=== PATIENT | female | born 1965 | race Caucasian/White ===

== ENCOUNTER → 2017-10-01 | Outpatient (CLI) | payer BC ==
[~2017-10-01] MED LIST: ASPI325; ATOR20 PO; CLOP75 PO; LEVSOD100 PO; LISI20 PO; METO50ER PO; Protonix40 MG PO; Synthroid50 MCG PO; TRAN2
[2017-10-01 10:43] LABS: BASOPHILS ABSOLUTE AUTO 0.06 K/mm3 (0.00-0.23); BASOPHILS PERCENT AUTO 1 % (0-2); EOSINOPHILS ABSOLUTE AUTO 0.14 K/mm3 (0.00-0.68); EOSINOPHILS PERCENT AUTO 2 % (0-6); Hematocrit 38.6 % (33.0-51.0); Hemoglobin 13.3 g/dL (11.5-16.0); IMMATURE GRAN ABSOLUTE AUTO 0.02 K/mm3 (0.00-0.10); IMMATURE GRAN PERCENT AUTO 0 % (0-1); LYMPHOCYTES PERCENT AUTO 22 % (21-46); MONOCYTES ABSOLUTE AUTO 1.05 K/mm3 (0.16-1.47); MONOCYTES PERCENT AUTO 12 % (4-13); Mean Corpuscular HGB 33.9 pg (26.0-34.0); Mean Corpuscular HGB Conc 34.5 g/dL (31.5-36.5); Mean Corpuscular Volume 99 fL (80-100); Mean Platelet Volume 10.4 fL (9.1-12.4); NEUTROPHILS ABSOLUTE AUTO 5.69 K/mm3 (1.96-9.15); NEUTROPHILS PERCENT AUTO 64 % (41-73); Platelet Count 266 K/mm3 (150-400); Red Blood Cell Count 3.92 M/mm3 (3.80-5.20); White Blood Cell Count 8.96 K/mm3 (4.00-11.30)
[2017-10-01 10:58] LABS: Alanine Aminotransfer (ALT/SGP 53 U/L (12-78); Albumin, Blood 3.8 g/dL (3.4-5.0); Albumin/Globulin Ratio 0.8 (0.8-1.8); Alk Phos 78 U/L (50-136); Anion Gap 10 mmol/L (6-16); Aspartate Aminotrans (AST/SGOT 72 U/L (12-37); Bilirubin, Total 0.5 mg/dL (0.1-1.0); Blood Urea Nitrogen 6 mg/dL (8-24); Bun/Creatinine Ratio 11.7 (12.0-20.0); CHOL/HDL RATIO 3.8; CO2, Blood 23 mmol/L (21-32); Calcium, Blood 9.4 mg/dL (8.5-10.1); Chloride, Blood 104 mmol/L (98-108); Cholesterol 188 mg/dL (50-200); Creatinine, Blood 0.51 mg/dL (0.40-1.00); Globulin, Blood 4.9 g/dL (2.2-4.0); Glomerular Filtration Rate >60 (60-); Glucose, Blood 75 mg/dL (70-99); HDL Cholesterol 49 mg/dL (>39); LDL/HDL RATIO 2.4; Low Density Lipoprotein Chol 118 mg/dL (0-110); Potassium, Blood 4.4 mmol/L (3.5-5.5); Sodium, Blood 137 mmol/L (136-145); Total Protein, Blood 8.7 g/dL (6.4-8.2); Triglycerides 107 mg/dL (30-160); Very Low Density Lipoprot Chol 21 mg/dL (6-32)
== END ==
LOC: LAB 10:30
PROVIDERS: Nurse Practitioner Family
DX: I10 Essential (primary) hypertension (principal); E03.9 Hypothyroidism, unspecified; R01.1 Cardiac murmur, unspecified; R20.2 Paresthesia of skin
CPT/HCPCS: 80053; 80061; 84443; 85025; 86140

== ENCOUNTER 2017-12-18 10:49 | Day surgery (SDC) | payer BC ==
[2017-12-17 17:28] LABS: BASOPHILS ABSOLUTE AUTO 0.07 K/mm3 (0.00-0.23); BASOPHILS PERCENT AUTO 1 % (0-2); EOSINOPHILS ABSOLUTE AUTO 0.22 K/mm3 (0.00-0.68); EOSINOPHILS PERCENT AUTO 3 % (0-6); Hematocrit 35.4 % (33.0-51.0); Hemoglobin 12.6 g/dL (11.5-16.0); IMMATURE GRAN PERCENT AUTO 0 % (0-1); LYMPHOCYTES ABSOLUTE AUTO 3.48 K/mm3 (0.84-5.20); LYMPHOCYTES PERCENT AUTO 46 % (21-46); MONOCYTES ABSOLUTE AUTO 0.66 K/mm3 (0.16-1.47); MONOCYTES PERCENT AUTO 9 % (4-13); Mean Corpuscular HGB 34.9 pg (26.0-34.0); Mean Corpuscular HGB Conc 35.6 g/dL (31.5-36.5); Mean Corpuscular Volume 98 fL (80-100); Mean Platelet Volume 9.2 fL (9.1-12.4); NEUTROPHILS ABSOLUTE AUTO 3.07 K/mm3 (1.96-9.15); NEUTROPHILS PERCENT AUTO 41 % (41-73); Platelet Count 280 K/mm3 (150-400); RDW Coefficient Variation 12.1 % (11.7-14.2); RDW Standard Deviation 43.5 fL (35.1-46.3); Red Blood Cell Count 3.61 M/mm3 (3.80-5.20)
[2017-12-17 17:44] LABS: International Normalized Ratio 0.97; Prothrombin Time Results 10.1 Sec (9.7-11.5)
[2017-12-17 17:53] LABS: Anion Gap 10 mmol/L (6-16); Blood Urea Nitrogen 5 mg/dL (8-24); Bun/Creatinine Ratio 5.9 (12.0-20.0); CO2, Blood 21 mmol/L (21-32); Calcium, Blood 8.6 mg/dL (8.5-10.1); Chloride, Blood 99 mmol/L (98-108); Creatinine, Blood 0.85 mg/dL (0.40-1.00); Glomerular Filtration Rate >60 (60-); Glucose, Blood 126 mg/dL (70-99); Potassium, Blood 3.4 mmol/L (3.5-5.5); Sodium, Blood 130 mmol/L (136-145)
[~2017-12-18] VITALS: Ht 167.6 cm; Wt 59.0 kg
== END 2017-12-19 08:07 | disposition home or self-care (01) ==
LOC: MHTC 10:49 → PCU 16:51 → ICUE 16:59 → MHTC 12-19 08:07
PROVIDERS: Internal Medicine Cardiovascular Disease
PROC: 4A023N7 Measurement of Cardiac Sampling and Pressure, Left Heart, Percutaneous Approach (ICD-10-PCS; principal; 2017-12-18)
PROC: B211YZZ Fluoroscopy of Multiple Coronary Arteries using Other Contrast (ICD-10-PCS; principal; 2017-12-18)
DX: I25.10 Atherosclerotic heart disease of native coronary artery without angina pectoris (principal); I34.0 Nonrheumatic mitral (valve) insufficiency; R93.1 Abnormal findings on diagnostic imaging of heart and coronary circulation; R06.02 Shortness of breath; R07.9 Chest pain, unspecified; E78.00 Pure hypercholesterolemia, unspecified; I10 Essential (primary) hypertension; Z82.49 Family history of ischemic heart disease and other diseases of the circulatory system; E78.5 Hyperlipidemia, unspecified
CPT/HCPCS: 36415; 80048; 85025; 85610; 93458; 99152; 99153; C1769; C1894; J1644; J2250; J3010; J7030; Q9967

== ENCOUNTER 2018-01-14 07:54 | Day surgery (SDC) | payer BC ==
[~2018-01-14] VITALS: Ht 162.6 cm; Wt 61.0 kg
== END 2018-01-14 22:43 | disposition home or self-care (01) ==
LOC: MHTC 07:54
PROC: B246ZZ4 Ultrasonography of Right and Left Heart, Transesophageal (ICD-10-PCS; principal; 2018-01-14)
DX: I34.0 Nonrheumatic mitral (valve) insufficiency (principal); I70.0 Atherosclerosis of aorta
CPT/HCPCS: 93312; 93325; J7030

== ENCOUNTER → 2018-09-26 | Outpatient (CLI) | payer BC ==
[2018-09-26 11:22] LABS: BASOPHILS ABSOLUTE AUTO 0.05 K/mm3 (0.00-0.23); BASOPHILS PERCENT AUTO 1 % (0-2); EOSINOPHILS ABSOLUTE AUTO 0.08 K/mm3 (0.00-0.68); EOSINOPHILS PERCENT AUTO 1 % (0-6); Hematocrit 40.2 % (33.0-51.0); Hemoglobin 14.1 g/dL (11.5-16.0); IMMATURE GRAN ABSOLUTE AUTO 0.02 K/mm3 (0.00-0.10); IMMATURE GRAN PERCENT AUTO 0 % (0-1); LYMPHOCYTES ABSOLUTE AUTO 2.16 K/mm3 (0.84-5.20); LYMPHOCYTES PERCENT AUTO 28 % (21-46); MONOCYTES ABSOLUTE AUTO 0.88 K/mm3 (0.16-1.47); MONOCYTES PERCENT AUTO 12 % (4-13); Mean Corpuscular HGB Conc 35.1 g/dL (31.5-36.5); Mean Corpuscular Volume 97 fL (80-100); NEUTROPHILS ABSOLUTE AUTO 4.46 K/mm3 (1.96-9.15); NEUTROPHILS PERCENT AUTO 58 % (41-73); Platelet Count 257 K/mm3 (150-400); RDW Coefficient Variation 12.4 % (11.7-14.2); RDW Standard Deviation 43.9 fL (35.1-46.3); Red Blood Cell Count 4.15 M/mm3 (3.80-5.20); White Blood Cell Count 7.65 K/mm3 (4.00-11.30)
[2018-09-26 11:36] LABS: Alanine Aminotransfer (ALT/SGP 14 U/L (12-78); Albumin/Globulin Ratio 0.9 (0.8-1.8); Alk Phos 96 U/L (50-136); Anion Gap 9 mmol/L (6-16); Aspartate Aminotrans (AST/SGOT 20 U/L (12-37); Bilirubin, Total 0.4 mg/dL (0.1-1.0); Blood Urea Nitrogen 7 mg/dL (8-24); Bun/Creatinine Ratio 9.6 (12.0-20.0); CO2, Blood 26 mmol/L (21-32); Calcium, Blood 9.4 mg/dL (8.5-10.1); Chloride, Blood 99 mmol/L (98-108); Creatinine, Blood 0.73 mg/dL (0.40-1.00); Globulin, Blood 4.6 g/dL (2.2-4.0); Glomerular Filtration Rate >60 (60-); Glucose, Blood 92 mg/dL (70-99); Potassium, Blood 4.1 mmol/L (3.5-5.5); Sodium, Blood 134 mmol/L (136-145); Total Protein, Blood 8.6 g/dL (6.4-8.2)
== END ==
LOC: LAB SHORT 10:55 → LAB 10:55
PROVIDERS: Family Medicine
DX: R59.9 Enlarged lymph nodes, unspecified (principal)
CPT/HCPCS: 80053; 84443; 85025; 85651

== ENCOUNTER → 2018-12-30 | Outpatient (CLI) | payer BC ==
[2018-12-30 13:00] LABS: BASOPHILS ABSOLUTE AUTO 0.08 K/mm3 (0.00-0.23); BASOPHILS PERCENT AUTO 1 % (0-2); EOSINOPHILS ABSOLUTE AUTO 0.28 K/mm3 (0.00-0.68); EOSINOPHILS PERCENT AUTO 4 % (0-6); Hematocrit 41.9 % (33.0-51.0); Hemoglobin 14.1 g/dL (11.5-16.0); IMMATURE GRAN ABSOLUTE AUTO 0.02 K/mm3 (0.00-0.10); IMMATURE GRAN PERCENT AUTO 0 % (0-1); LYMPHOCYTES ABSOLUTE AUTO 3.17 K/mm3 (0.84-5.20); LYMPHOCYTES PERCENT AUTO 45 % (21-46); MONOCYTES ABSOLUTE AUTO 0.76 K/mm3 (0.16-1.47); MONOCYTES PERCENT AUTO 11 % (4-13); Mean Corpuscular HGB Conc 33.7 g/dL (31.5-36.5); Mean Corpuscular Volume 101 fL (80-100); Mean Platelet Volume 10.4 fL (9.1-12.4); NEUTROPHILS ABSOLUTE AUTO 2.72 K/mm3 (1.96-9.15); NEUTROPHILS PERCENT AUTO 39 % (41-73); Platelet Count 340 K/mm3 (150-400); RDW Coefficient Variation 13.3 % (11.7-14.2); RDW Standard Deviation 49.5 fL (35.1-46.3); Red Blood Cell Count 4.15 M/mm3 (3.80-5.20); White Blood Cell Count 7.03 K/mm3 (4.00-11.30)
[2018-12-30 13:35] LABS: Alanine Aminotransfer (ALT/SGP 24 U/L (12-78); Albumin, Blood 3.7 g/dL (3.4-5.0); Albumin/Globulin Ratio 0.8 (0.8-1.8); Alk Phos 81 U/L (50-136); Anion Gap 7 mmol/L (6-16); Aspartate Aminotrans (AST/SGOT 42 U/L (12-37); Bilirubin, Total 0.4 mg/dL (0.1-1.0); Blood Urea Nitrogen 3 mg/dL (8-24); Bun/Creatinine Ratio 4.8 (12.0-20.0); CHOL/HDL RATIO 5.9; CO2, Blood 24 mmol/L (21-32); Calcium, Blood 9.5 mg/dL (8.5-10.1); Chloride, Blood 107 mmol/L (98-108); Cholesterol 231 mg/dL (50-200); Creatinine, Blood 0.62 mg/dL (0.40-1.00); Globulin, Blood 4.4 g/dL (2.2-4.0); Glomerular Filtration Rate >60 (60-); Glucose, Blood 76 mg/dL (70-99); HDL Cholesterol 39 mg/dL (>39); LDL/HDL RATIO 3.2; Low Density Lipoprotein Chol 126 mg/dL (0-110); Potassium, Blood 4.7 mmol/L (3.5-5.5); Sodium, Blood 138 mmol/L (136-145); Total Protein, Blood 8.1 g/dL (6.4-8.2); Triglycerides 328 mg/dL (30-160); Very Low Density Lipoprot Chol 65 mg/dL (6-32)
== END | disposition home or self-care (01) ==
LOC: LAB 11:57 → LAB SHORT 11:57
PROVIDERS: Nurse Practitioner Family
DX: E03.9 Hypothyroidism, unspecified (principal); I10 Essential (primary) hypertension
CPT/HCPCS: 80053; 80061; 84443; 85025

== ENCOUNTER 2019-02-17 10:51 | Day surgery (SDC) | payer BC ==
[~2019-02-17] VITALS: Ht 162.6 cm; Wt 59.9 kg
[~2019-02-17 10:51] MED LIST changes: +ASPI81CH
--- NOTE | 2019-02-17 12:30 | NUR ---
02/17/19 1230 Sherry Calloway SIMETHICONE USED DURING PROCEDURE.
== END 2019-02-17 13:18 | disposition home or self-care (01) ==
LOC: ORSCSDS 10:51
PROVIDERS: Student in an Organized Health Care Education/Training Program
PROC: 0DBK8ZX Excision of Ascending Colon, Via Natural or Artificial Opening Endoscopic, Diagnostic (ICD-10-PCS; principal; 2019-02-17 12:00)
PROC: 0DBE8ZX Excision of Large Intestine, Via Natural or Artificial Opening Endoscopic, Diagnostic (ICD-10-PCS; principal; 2019-02-17 12:00)
PROC: 0DBP8ZX Excision of Rectum, Via Natural or Artificial Opening Endoscopic, Diagnostic (ICD-10-PCS; principal; 2019-02-17 12:00)
DX: R19.7 Diarrhea, unspecified (principal); D12.2 Benign neoplasm of ascending colon; K62.1 Rectal polyp; K52.831 Collagenous colitis; R14.0 Abdominal distension (gaseous); I25.10 Atherosclerotic heart disease of native coronary artery without angina pectoris; I10 Essential (primary) hypertension; E03.9 Hypothyroidism, unspecified; J44.9 Chronic obstructive pulmonary disease, unspecified; F17.210 Nicotine dependence, cigarettes, uncomplicated
CPT/HCPCS: 88305; 88313; J2704; J7120

== ENCOUNTER → 2022-11-24 | Outpatient (CLI) | payer OTHER ==
[~2022-11-24] MED LIST changes: +ASPI81CH PO; +ATOR40TA PO; +BUDE.25 PO; +BUPR150ER PO; +ISOMON20 PO; +LEVO-T100 MC1 PO; +LIOT5 PO; -LISI20 PO; +LISI5 PO; +NICO21TP TOP; +PANTOPRAZOLE SO40 M2 PO
[2022-11-24 14:15] LABS: Adenovirus F 40/41 Not Detected (NOT DETECT); Astrovirus Not Detected (NOT DETECT); Campylobacter Sp Not Detected (NOT DETECT); Cryptosporidium Not Detected (NOT DETECT); Cyclospora Cayetanensis Not Detected (NOT DETECT); E. Coli O157 Not Detected (NOT DETECT); Entamoeba Histolytica Not Detected (NOT DETECT); Enteroaggregative E. coli-EAEC Not Detected (NOT DETECT); Enteropathogenic E. coli-EPEC Not Detected (NOT DETECT); Enterotoxigenic E. coli-ETEC Not Detected (NOT DETECT); Giardia Lamblia Not Detected (NOT DETECT); Norovirus GI/GII Not Detected (NOT DETECT); Plesiomonas Shigelloides Not Detected (NOT DETECT); Rotavirus A Not Detected (NOT DETECT); Salmonella Sp Not Detected (NOT DETECT); Sapovirus Not Detected (NOT DETECT); Shiga Toxin-prod E. coli-STEC Not Detected (NOT DETECT); Shigella/Enteroin E. coli-EIEC Not Detected (NOT DETECT); Vibrio Cholerae Not Detected (NOT DETECT); Vibrio Sp Not Detected (NOT DETECT); Yersinia Enterocolitica Not Detected (NOT DETECT)
== END | disposition home or self-care (01) ==
LOC: LAB 08:00 → LAB SHORT 08:00
PROVIDERS: Nurse Practitioner Family
DX: R19.7 Diarrhea, unspecified (principal)
CPT/HCPCS: 87338; 87507; 89055

== ENCOUNTER 2023-01-26 12:41 | Day surgery (SDC) | payer OTHER ==
[~2023-01-26] VITALS: Ht 162.6 cm; Wt 23.1 kg
[2023-01-26] MEDS ORDERED: ERGO400 (13:09)
[2023-01-26] MEDS ORDERED: BUDESONIDE EC3 M1 (13:09)
[2023-01-26] MEDS ORDERED: FOLI1 (13:09)
[2023-01-26] MEDS ORDERED: Vitamin B-12100 MCG (13:09)
[2023-01-26 15:17] VITALS: BP 144/73
== END 2023-01-26 15:00 | disposition home or self-care (01) ==
LOC: ORSCSDS 12:41
PROVIDERS: Student in an Organized Health Care Education/Training Program
PROC: 0DB98ZX Excision of Duodenum, Via Natural or Artificial Opening Endoscopic, Diagnostic (ICD-10-PCS; principal; 2023-01-26 14:00)
PROC: 0DB68ZX Excision of Stomach, Via Natural or Artificial Opening Endoscopic, Diagnostic (ICD-10-PCS; principal; 2023-01-26 14:00)
PROC: 0DB58ZX Excision of Esophagus, Via Natural or Artificial Opening Endoscopic, Diagnostic (ICD-10-PCS; principal; 2023-01-26 14:00)
DX: K22.70 Barrett's esophagus without dysplasia (principal); K52.831 Collagenous colitis; K20.90 Esophagitis, unspecified without bleeding; K29.70 Gastritis, unspecified, without bleeding; K44.9 Diaphragmatic hernia without obstruction or gangrene; I25.10 Atherosclerotic heart disease of native coronary artery without angina pectoris; I10 Essential (primary) hypertension; E78.5 Hyperlipidemia, unspecified; E03.9 Hypothyroidism, unspecified; J44.9 Chronic obstructive pulmonary disease, unspecified; D50.9 Iron deficiency anemia, unspecified; Z87.891 Personal history of nicotine dependence; Z79.82 Long term (current) use of aspirin; Z79.899 Other long term (current) drug therapy
CPT/HCPCS: 88305; 88342; J2704; J7120

== ENCOUNTER → 2023-05-15 | Outpatient (CLI) | payer OTHER ==
[~2023-05-15] MED LIST changes: +BUDESONIDE EC3 M1; +ERGO400; +FOLI1; +Vitamin B-12100 MCG
== END | disposition home or self-care (01) ==
LOC: LAB 12:25 → LAB SHORT 12:25
DX: M25.471 Effusion, right ankle (principal)
CPT/HCPCS: 84550

== ENCOUNTER → 2023-07-05 | Outpatient (CLI) | payer OTHER ==
[2023-07-06 02:19] LABS: Campylobacter Sp Not Detected (NOT DETECT)
[2023-07-06 02:20] LABS: Adenovirus F 40/41 Not Detected (NOT DETECT); Astrovirus Not Detected (NOT DETECT); Cryptosporidium Not Detected (NOT DETECT); Cyclospora Cayetanensis Not Detected (NOT DETECT); E. Coli O157 Not Detected (NOT DETECT); Entamoeba Histolytica Not Detected (NOT DETECT); Enteroaggregative E. coli-EAEC Not Detected (NOT DETECT); Enteropathogenic E. coli-EPEC Not Detected (NOT DETECT); Enterotoxigenic E. coli-ETEC Not Detected (NOT DETECT); Giardia Lamblia Not Detected (NOT DETECT); Norovirus GI/GII Not Detected (NOT DETECT); Plesiomonas Shigelloides Not Detected (NOT DETECT); Rotavirus A Not Detected (NOT DETECT); Salmonella Sp Not Detected (NOT DETECT); Sapovirus Not Detected (NOT DETECT); Shiga Toxin-prod E. coli-STEC Not Detected (NOT DETECT); Shigella/Enteroin E. coli-EIEC Not Detected (NOT DETECT); Vibrio Cholerae Not Detected (NOT DETECT); Vibrio Sp Not Detected (NOT DETECT); Yersinia Enterocolitica Not Detected (NOT DETECT)
== END | disposition home or self-care (01) ==
LOC: LAB SHORT 09:00 → LAB 09:00 → LAB SHORT 12:54 → EDSTATUS 06-28 14:35 → LAB FUT 06-28 14:35
PROVIDERS: Internal Medicine Gastroenterology
DX: R19.7 Diarrhea, unspecified (principal)
CPT/HCPCS: 87507

== ENCOUNTER 2024-03-28 06:11 | Day surgery (SDC) | payer OTHER ==
[~2024-03-28] VITALS: Ht 162.6 cm; Wt 68.2 kg
[2024-03-28] VITALS (25 sets, daily range): BP systolic 105–155; BP diastolic 63–99
[~2024-03-28 06:11] MED LIST changes: +ALBU90OI INH; +AMLODIPINE BESYL5 MG PO; +ASCORBIC ACID500 MG PO; -ASPI81CH PO; +ASPIR 8181 M1 PO; -BUDESONIDE EC3 M1; +Calcium Carbon500 MG PO; +Crestor40 MG PO; -ERGO400; +FARXIGA10 MG PO; +FERSU300 PO; -FOLI1; +FOLI1 PO; +FURO40 PO; +IBUP800 PO; +K-TAB ER20 ME1 PO; -LEVO-T100 MC1 PO; +LEVO-T88 MC1 PO; +LOPE2C PO; +METO100ER PO; -METO50ER PO; +MIRALAX11910 PO; +NITR.4SL PO; +ORTIKOS6 M1 PO; +SERTRALINE HCL150 M1 PO; +VITAMIN B-1100 M1 PO; +VITAMIN D310 MC4 PO; -Vitamin B-12100 MCG; +Vitamin B-12100 MCG PO
[2024-03-28] MEDS ORDERED: NS 1,000 ML IV ONE ×3 (06:47→08:21)
[2024-03-28] MEDS ORDERED: Benzocaine Oral Spray 0.5ML UD ONE (06:55)
[2024-03-28] MEDS ORDERED: Verapamil HCL 2.5 MG/ML 2ML Injection ONE (07:05)
[2024-03-28] MEDS ORDERED: NS 250 ML IV ONE (07:06)
[2024-03-28] MEDS ORDERED: Heparin Sodium 1000 Units/ML 10ML MDV ONE ×2 (07:06→08:46)
[2024-03-28] MEDS ORDERED: Nitroglycerin 2 MG/20 ML BTL ONE (07:18)
--- NOTE | 2024-03-28 07:47 | NUR ---
SHARAN WITH ANESTHESIA COMPLETE. PT MARKOS PROCEDURE WELL. ASSUMED CARE AT 0750. VSS. RIGHT AND LEFT HEART CATH TO FOLLOW WITH DR LEON. PT AWAKE AND FOLLOWING COMMANDS.
--- NOTE | 2024-03-28 08:09 | NUR ---
PT BROUGHT TO RECOVERY ROOM AWAKE, ALERT, AND IN STABLE CONDITION
[2024-03-28] MEDS ORDERED: Midazolam HCl 1MG / ML 2ML Vial ONE (08:21)
[2024-03-28] MEDS ORDERED: FentaNYL Citrate 50 MCG/ML 2 ML Injection ONE (08:21)
[2024-03-28] MEDS ORDERED: NS 100 ML IV ONE (08:24)
[2024-03-28] MEDS ORDERED: Adenosine 3 MG/ML 30 ML Vial ONE (08:25)
[2024-03-28] MEDS ORDERED: NS 0 ML IV ONE (08:25)
--- NOTE | 2024-03-28 10:33 | NUR ---
PT UP TO THE BATHROOM /C SBA. TOLERATED WELL.
--- NOTE | 2024-03-28 12:02 | NUR ---
10CC AIR REMOVED FROM R WRIST TR BAND. NEG BLEEDING OR SWELLING. FAMILY AT BEDSIDE.
--- NOTE | 2024-03-28 12:11 | NUR ---
R WRIST TR BAND REMOVED AND CLOTH DOT DRSG PLACED OVER PUNCTURE AREA. R WRIST SPLINT REAPPLIED. PT AND VERBALIZED UNDERSTANDING OF WRITTEN AND VERBAL D/C INST. IV REMOVED. PT WILL BE TAKEN OUT VIA W/C.
[2024-03-28] MEDS ORDERED: Lidocaine HCl 2% 20 MG/ML 5ML SYR IV ONE (15:31)
[2024-03-28] MEDS ORDERED: Propofol 10mg/ml 20 ml Vial (Procedural) IV ONE (15:31)
== END 2024-03-28 12:50 | disposition home or self-care (01) ==
LOC: ORSCMMR 06:11 → MHTC 06:11 → ORSCMMR 06:12 → MHTC 06:25 → ORSCMMR 06:25 → ORD 07:30 → MHTC 12:50 → ORSCMMR 12:50
DX: I34.0 Nonrheumatic mitral (valve) insufficiency (principal); I27.20 Pulmonary hypertension, unspecified; I25.10 Atherosclerotic heart disease of native coronary artery without angina pectoris; I15.9 Secondary hypertension, unspecified; I47.10 Supraventricular tachycardia, unspecified; I11.9 Hypertensive heart disease without heart failure; I63.9 Cerebral infarction, unspecified; I73.9 Peripheral vascular disease, unspecified; I44.0 Atrioventricular block, first degree; R06.02 Shortness of breath; E78.5 Hyperlipidemia, unspecified; E03.9 Hypothyroidism, unspecified; Z86.73 Personal history of transient ischemic attack (TIA), and cerebral infarction without residual deficits; Z79.82 Long term (current) use of aspirin; Z79.890 Hormone replacement therapy; Z79.899 Other long term (current) drug therapy; Z88.8 Allergy status to other drugs, medicaments and biological substances
CPT/HCPCS: 76937; 93312; 93325; 93456; 99152; A9270; C1769; C1894; J0153; J1644; J2001; J2250; J2704; J3010; J7030; J7050; Q9967

== ENCOUNTER → 2024-04-03 | Outpatient (CLI) | payer OTHER | END | disposition home or self-care (01) | LOC: LAB SHORT 10:00 | DX: N39.0 Urinary tract infection, site not specified (principal) | CPT/HCPCS: 87077; 87086; 87186 ==

== ENCOUNTER 2024-04-04 12:24 | Emergency (ER) | payer OTHER ==
[~2024-04-04] VITALS: Ht 162.6 cm; Wt 68.0 kg
[2024-04-04 12:55] LABS: BASOPHILS ABSOLUTE AUTO 0.07 K/mm3 (0.00-0.23); BASOPHILS PERCENT AUTO 1 % (0-2); EOSINOPHILS PERCENT AUTO 4 % (0-6); Hematocrit 40.8 % (33.0-51.0); Hemoglobin 13.5 g/dL (11.5-16.0); IMMATURE GRAN ABSOLUTE AUTO 0.04 K/mm3 (0.00-0.10); IMMATURE GRAN PERCENT AUTO 1 % (0-1); LYMPHOCYTES ABSOLUTE AUTO 1.71 K/mm3 (0.84-5.20); LYMPHOCYTES PERCENT AUTO 21 % (21-46); MONOCYTES ABSOLUTE AUTO 0.82 K/mm3 (0.16-1.47); MONOCYTES PERCENT AUTO 10 % (4-13); Mean Corpuscular HGB 31.3 pg (26.0-34.0); Mean Corpuscular HGB Conc 33.1 g/dL (31.5-36.5); Mean Corpuscular Volume 94 fL (80-100); Mean Platelet Volume 9.1 fL (9.1-12.4); NEUTROPHILS ABSOLUTE AUTO 5.12 K/mm3 (1.96-9.15); NEUTROPHILS PERCENT AUTO 64 % (41-73); Platelet Count 402 K/mm3 (150-400); RDW Coefficient Variation 14.4 % (11.7-14.2); RDW Standard Deviation 49.9 fL (35.1-46.3); Red Blood Cell Count 4.32 M/mm3 (3.80-5.20); White Blood Cell Count 8.06 K/mm3 (4.00-11.30)
[2024-04-04 13:13] LABS: Albumin, Blood 3.7 g/dL (3.4-5.0); Albumin/Globulin Ratio 0.8 (0.8-1.8); Bilirubin, Total 0.2 mg/dL (0.1-1.0); Bun/Creatinine Ratio 6.2 (12.0-20.0); Calcium, Blood 9.1 mg/dL (8.5-10.1); Creatinine, Blood 0.98 mg/dL (0.40-1.00); Globulin, Blood 4.8 g/dL (2.2-4.0); Phosphorus, Blood 4.4 mg/dL (2.5-4.9); Potassium, Blood 4.8 mmol/L (3.5-5.5); Total Protein, Blood 8.5 g/dL (6.4-8.2)
[2024-04-04 16:00] VITALS: BP 145/65
== END 2024-04-04 16:11 | disposition home or self-care (01) ==
LOC: ER 12:24
PROVIDERS: Physician Assistant
DX: Z71.41 Alcohol abuse counseling and surveillance of alcoholic (principal); F10.10 Alcohol abuse, uncomplicated; Z79.899 Other long term (current) drug therapy; Z79.82 Long term (current) use of aspirin; I10 Essential (primary) hypertension; F17.210 Nicotine dependence, cigarettes, uncomplicated; Y90.8 Blood alcohol level of 240 mg/100 ml or more
CPT/HCPCS: 80053; 83735; 84100; 85025; 99282

== ENCOUNTER 2024-06-03 16:29 | Observation (INO) | payer OTHER ==
[~2024-06-03] VITALS: Ht 162.6 cm; Wt 64.6 kg
[2024-06-03 16:46] VITALS: BP 113/61
[2024-06-03] MEDS ORDERED: FLU VACC TS2024-25(6MOS UP)/PF 45 MCG/0.5 ML SYRINGE IM ONE (17:00)
--- NOTE | 2024-06-03 17:10 | NUR ---
PT ARRIVED TO THE ROOM AT APPROXIMATELY 1455. PT ALERT, ORIENTED AND PLEASANT AT TIME OF ARRIVAL. PT RATES PAIN AT 5/10 AND STATES PAIN IS TOLERABLE. CALL LIGHT PLACED IN REACH AND PT EDUCATED TO USE.
[2024-06-03] MEDS ORDERED: Albuterol HFA200 ACT/6.7 GM INH INH PRN (17:25)
[2024-06-03] MEDS ORDERED: ORTIKOS6 M1 PO (17:53)
[2024-06-03] MEDS ORDERED: Naltrexone HCl50 MG PO (17:54)
[2024-06-03] MEDS ORDERED: Metoprolol Succinate 50 MG TABCR PO SCH (18:00)
[2024-06-03] MEDS ORDERED: Piperacillin/Tazobactam Sod 3.375 GM in NS 100 ML IV SCH (18:00)
[2024-06-03] MEDS ORDERED: NS 250 ML IV PRN (18:40)
[2024-06-03] MEDS ORDERED: HYDROcodone 5-APAP 325 TAB PO PRN (19:05)
[2024-06-03] MEDS ORDERED: Acetaminophen 325 MG TABLET PO PRN (19:10)
[2024-06-03] MEDS ORDERED: FentaNYL Citrate 50 MCG/ML 2 ML Injection IV PRN (19:10)
[2024-06-03 19:25] VITALS: BP 130/62
--- NOTE | 2024-06-03 19:28 | NUR ---
SHIFT SUMMARY PT ADMITTED THIS SHIFT. PAIN HAS BEEN MINIMAL WHILE AT REST. PT IS TOLERATING CLEAR LIQUIDS. BEDSIDE REPORT GIVEN TO MATEO DASILVA.
[2024-06-03] MEDS ORDERED: Liothyronine Sodium 5 MCG Tab PO SCH (21:00)
[2024-06-03] MEDS ORDERED: Sennosides 8.6 MG Tab PO SCH (21:00)
[2024-06-03] MEDS ORDERED: Lisinopril 5 MG Tab PO SCH (21:00)
[2024-06-03] MEDS ORDERED: buPROPion HCL 150 MG TAB.SR.12H PO SCH (21:00)
[2024-06-04] VITALS (19 sets, daily range): BP systolic 109–167; BP diastolic 55–80
[2024-06-04 05:08] LABS: BASOPHILS ABSOLUTE AUTO 0.06 K/mm3 (0.00-0.23); BASOPHILS PERCENT AUTO 0 % (0-2); EOSINOPHILS ABSOLUTE AUTO 0.22 K/mm3 (0.00-0.68); EOSINOPHILS PERCENT AUTO 1 % (0-6); Hematocrit 35.4 % (33.0-51.0); Hemoglobin 11.2 g/dL (11.5-16.0); IMMATURE GRAN ABSOLUTE AUTO 0.03 K/mm3 (0.00-0.10); IMMATURE GRAN PERCENT AUTO 0 % (0-1); LYMPHOCYTES ABSOLUTE AUTO 1.78 K/mm3 (0.84-5.20); LYMPHOCYTES PERCENT AUTO 11 % (21-46); MONOCYTES PERCENT AUTO 8 % (4-13); Mean Corpuscular HGB 29.6 pg (26.0-34.0); Mean Corpuscular HGB Conc 31.6 g/dL (31.5-36.5); Mean Corpuscular Volume 94 fL (80-100); Mean Platelet Volume 10.2 fL (9.1-12.4); NEUTROPHILS ABSOLUTE AUTO 12.38 K/mm3 (1.96-9.15); NEUTROPHILS PERCENT AUTO 79 % (41-73); Platelet Count 314 K/mm3 (150-400); RDW Coefficient Variation 12.9 % (11.7-14.2); RDW Standard Deviation 44.2 fL (35.1-46.3); Red Blood Cell Count 3.78 M/mm3 (3.80-5.20); White Blood Cell Count 15.77 K/mm3 (4.00-11.30)
[2024-06-04 05:44] LABS: Bun/Creatinine Ratio 11.3 (12.0-20.0); Creatinine, Blood 1.24 mg/dL (0.40-1.00)
[2024-06-04] MEDS ORDERED: Pantoprazole Sodium 40 MG Tab PO SCH (06:00)
[2024-06-04] MEDS ORDERED: Levothyroxine Sodium 0.088 MG Tab PO SCH (06:00)
--- NOTE | 2024-06-04 06:52 | NUR ---
SHIFT SUMMARY NOC. PT ADMIT FOR APPY. PT HAS BEEN NPO SINCE 0000. VOIDING URINE. A/O X4 BUT REPORTS FORGETFUL AT TIMES. BED ALARM SET FOR SAFETY, PT DID NOT SET OFF ALARM AND CALLS APPROPRIATLY. MEDICATED FOR PAIN X1 WITH REPORTED RELIEF. CALL LIGHT IN REACH.
[2024-06-04] MEDS ORDERED: Lactated Ringer's 1,000 ML IV SCH (08:05)
[2024-06-04] MEDS ORDERED: Aspirin 81 MG Chew PO SCH (09:00)
[2024-06-04] MEDS ORDERED: Empagliflozin 10 MG TAB PO SCH (09:00)
[2024-06-04] MEDS ORDERED: Docusate Sodium 100 MG Cap PO SCH (09:00)
[2024-06-04] MEDS ORDERED: Sertraline HCl 100 MG Tab PO SCH (09:00)
[2024-06-04] MEDS ORDERED: Rosuvastatin Calcium 10 MG Tab PO SCH (09:00)
[2024-06-04] MEDS ORDERED: Bupivacaine 0.5% HCl 5 MG/ML 30MLVIAL ONE (10:18)
--- NOTE | 2024-06-04 10:19 | NUR ---
PT HERE VIA [facility] TO [facility] FOR LAP APPY BY DR. HOBBS Patient confirms NPO status and agrees with scheduled surgery. Pre-Op teaching done. Pt verbalizes understanding. History, Chart, Medications and Allergies reviewed before start of procedure.
--- NOTE | 2024-06-04 10:46 | NUR ---
PT TO OR AT ABOUT 0304
[2024-06-04] MEDS ORDERED: FentaNYL Citrate 50 MCG/ML 2 ML Injection ONE (11:12)
[2024-06-04] MEDS ORDERED: propofoL 20 ML IV ONE (11:12)
[2024-06-04] MEDS ORDERED: Rocuronium Bromide 10 MG/ML 5ML Injection IV ONE (11:13)
[2024-06-04] MEDS ORDERED: Dexamethasone Sod Phos 10 MG/ML 1ML VIAL ONE (11:28)
[2024-06-04] MEDS ORDERED: Sugammadex Sodium 200 MG/2ML SDV (100 MG/ML) ONE (12:18)
[2024-06-04] MEDS ORDERED: Ondansetron HCl 2 MG / ML 2ML Vial ONE (12:18)
[2024-06-04] MEDS ORDERED: Ondansetron HCl 2 MG / ML 2ML Vial IV PRN (13:30)
--- NOTE | 2024-06-04 16:24 | NUR ---
POST OP: REPORT RECEIVED FROM SUPERVISOR [employer]. PT TO UNIT AT 1315. A/O, VSS. SURGICAL SITES WNL. PT REPORTS PAIN AND NAUSEA. MEDICATED PER EMAR. PT GIVEN CALL LIGHT AND INSTRUCTED TO CALL FOR 1ST TIME OOB.
--- NOTE | 2024-06-04 18:05 | NUR ---
SUMMARY: PT HAS DONE WELL POST OP. VSS, A/O. AMBULATING AND VOIDING. MARKOS REG DIET TONIGHT. SURGICAL SITES WNL. NO SAFETY CONCERNS.
[2024-06-05 04:34] VITALS: BP 142/73
[2024-06-05 05:03] LABS: BASOPHILS ABSOLUTE AUTO 0.03 K/mm3 (0.00-0.23); BASOPHILS PERCENT AUTO 0 % (0-2); EOSINOPHILS ABSOLUTE AUTO 0.05 K/mm3 (0.00-0.68); EOSINOPHILS PERCENT AUTO 0 % (0-6); Hematocrit 33.6 % (33.0-51.0); IMMATURE GRAN ABSOLUTE AUTO 0.08 K/mm3 (0.00-0.10); IMMATURE GRAN PERCENT AUTO 1 % (0-1); LYMPHOCYTES ABSOLUTE AUTO 1.97 K/mm3 (0.84-5.20); LYMPHOCYTES PERCENT AUTO 13 % (21-46); MONOCYTES ABSOLUTE AUTO 1.16 K/mm3 (0.16-1.47); MONOCYTES PERCENT AUTO 8 % (4-13); Mean Corpuscular HGB 30.2 pg (26.0-34.0); Mean Corpuscular HGB Conc 32.7 g/dL (31.5-36.5); Mean Corpuscular Volume 92 fL (80-100); Mean Platelet Volume 10.2 fL (9.1-12.4); NEUTROPHILS ABSOLUTE AUTO 12.14 K/mm3 (1.96-9.15); NEUTROPHILS PERCENT AUTO 79 % (41-73); Platelet Count 336 K/mm3 (150-400); RDW Coefficient Variation 12.9 % (11.7-14.2); RDW Standard Deviation 43.8 fL (35.1-46.3); Red Blood Cell Count 3.64 M/mm3 (3.80-5.20); White Blood Cell Count 15.43 K/mm3 (4.00-11.30)
[2024-06-05 05:25] LABS: Albumin, Blood 2.8 g/dL (3.4-5.0); Albumin/Globulin Ratio 0.7 (0.8-1.8); Bilirubin, Total 0.4 mg/dL (0.1-1.0); Bun/Creatinine Ratio 13.5 (12.0-20.0); Calcium, Blood 9.3 mg/dL (8.5-10.1); Creatinine, Blood 0.96 mg/dL (0.40-1.00); Globulin, Blood 4.1 g/dL (2.2-4.0); Total Protein, Blood 6.9 g/dL (6.4-8.2)
--- NOTE | 2024-06-05 06:38 | NUR ---
SHIFT SUMMARY NOC. PT POD 1 FOR LAP APPY. PT LAP SITES ON ABDOMEN X4 C/D/I. PT PASSING GAS, HAVIGN BM, TOLERATING PO, AND VOIDING URINE. PT MEDICATED FOR PAIN IN ABDOMEN/BURGOS X3 THIS SHIFT WITH REPORTED RELIEF. TYLENOL ALONE REPORTED TO BE INEFFECTIVE. PT A/O X4, NO EPISODES OF FORGETFULNESS, CALLS APPROPRIATLY. CALL LIGHT IN REACH.
[2024-06-05 07:09] VITALS: BP 112/87
[2024-06-05] MEDS ORDERED: OXAYDO5 M1 PO (08:04)
[2024-06-05] MEDS ORDERED: AMOCLA875 PO (08:05)
--- NOTE | 2024-06-05 11:20 | NUR ---
DISCHARGE SUMMARY POD1 LAP APPY, A/OX4, VSS, TOLERATING PO, PAIN WELL MANAGED, AMBULATING INDEPENDENTLY, VOIDING WELL, ABD LAP SITES X4 C/D/I, ABD SOFT WITH MILD TENDERNESS WITH PALPATION, DENIES SOB, DENIES CHEST PAIN/PRESSURE. DISCUSSED DISCHARGE INSTRUCTIONS WITH HER AND HER INCLUDING HOME CARE, MEDICATIONS, AND FOLLOW UP APPOINTMENTS. NO QUESTIONS AT THIS TIME, IV ACCESS REMVOED WHILE DISCUSSING DC INSTRUCTIONS, ESCORTED OUT VIA WC TO PRIVATE AUTO TO GO HOME.
== END 2024-06-05 11:19 | disposition home or self-care (01) ==
LOC: SURS 16:29
PROVIDERS: Surgery; ADMIT Internal Medicine
PROC: 0DTJ4ZZ Resection of Appendix, Percutaneous Endoscopic Approach (ICD-10-PCS; principal; 2024-06-04 10:00)
DX: K35.80 Unspecified acute appendicitis (principal); N17.9 Acute kidney failure, unspecified; I12.9 Hypertensive chronic kidney disease with stage 1 through stage 4 chronic kidney disease, or unspecified chronic kidney disease; N18.6 End stage renal disease; I07.1 Rheumatic tricuspid insufficiency; I25.10 Atherosclerotic heart disease of native coronary artery without angina pectoris; J44.9 Chronic obstructive pulmonary disease, unspecified; K21.9 Gastro-esophageal reflux disease without esophagitis; F41.8 Other specified anxiety disorders; E78.5 Hyperlipidemia, unspecified; E03.9 Hypothyroidism, unspecified; G47.33 Obstructive sleep apnea (adult) (pediatric); Z86.73 Personal history of transient ischemic attack (TIA), and cerebral infarction without residual deficits; Z79.890 Hormone replacement therapy; Z79.899 Other long term (current) drug therapy; R10.31 Right lower quadrant pain; K46.9 Unspecified abdominal hernia without obstruction or gangrene; M41.9 Scoliosis, unspecified; M47.816 Spondylosis without myelopathy or radiculopathy, lumbar region; I70.0 Atherosclerosis of aorta; N28.1 Cyst of kidney, acquired; K82.8 Other specified diseases of gallbladder
CPT/HCPCS: 36415; 74022; 74177; 80048; 80053; 83690; 85025; 88304; 93005; 93010; 96365; 96375; 96376; A9270; G0378; J1100; J2405; J2543; J2704; J3010; J7050; Q9967

== ENCOUNTER 2024-06-10 11:18 | Day surgery (SDC) | payer OTHER ==
[~2024-06-10] VITALS: Ht 162.6 cm; Wt 63.2 kg
[~2024-06-10 11:18] MED LIST changes: +AMOCLA875 PO; +Balanced Salt Epinephrine Irrigation Solution 500 mL IR SCH; +Lidocaine HCl/Pf 1% 5 ML VIAL XX SCH; +Moxifloxacin HCL 0.5 MG/0.1 ML 0.4MLSYR LEFTEYE SCH; +NS 500 ML IV ONE; +Naltrexone HCl50 MG PO; +OXAYDO5 M1 PO; +PHENYLEPHRINE\\TROPICAMIDE\\TETRACAINE OPHTHALMIC DILATING SOLN LEFTEYE PRN; +Povidone-Iodine 450 DROP/30 ML Solution LEFTEYE SCH; +Povidone-Iodine 450 DROP/30 ML Solution ONE; +Tetracaine HCl/Pf 0.5% Opth Soln 4 ml ONE
[2024-06-10] MEDS ORDERED: NS 500 ML IV ONE ×3 (12:00→12:32)
[2024-06-10] MEDS ORDERED: Midazolam HCl 1MG / ML 2ML Vial ONE (12:12)
[2024-06-10 12:38] VITALS: BP 131/64
== END 2024-06-10 12:55 | disposition home or self-care (01) ==
LOC: ORSCSDS 11:18
PROVIDERS: Student in an Organized Health Care Education/Training Program
PROC: 08RK3JZ Replacement of Left Lens with Synthetic Substitute, Percutaneous Approach (ICD-10-PCS; principal; 2024-06-10 12:30)
DX: H25.812 Combined forms of age-related cataract, left eye (principal); Z96.1 Presence of intraocular lens; J44.9 Chronic obstructive pulmonary disease, unspecified; E78.5 Hyperlipidemia, unspecified; E03.9 Hypothyroidism, unspecified; N18.9 Chronic kidney disease, unspecified; R56.9 Unspecified convulsions; Z87.891 Personal history of nicotine dependence; Z79.82 Long term (current) use of aspirin; Z79.899 Other long term (current) drug therapy
CPT/HCPCS: J2250; J7040; V2632

== ENCOUNTER 2024-08-05 10:29 | Day surgery (SDC) | payer OTHER ==
[~2024-08-05] VITALS: Ht 162.6 cm; Wt 66.6 kg
[~2024-08-05 10:29] MED LIST changes: -Balanced Salt Epinephrine Irrigation Solution 500 mL IR SCH; +IBU800 MG PO; -Lidocaine HCl/Pf 1% 5 ML VIAL XX SCH; -Moxifloxacin HCL 0.5 MG/0.1 ML 0.4MLSYR LEFTEYE SCH; -NS 500 ML IV ONE; -PHENYLEPHRINE\\TROPICAMIDE\\TETRACAINE OPHTHALMIC DILATING SOLN LEFTEYE PRN; -Povidone-Iodine 450 DROP/30 ML Solution LEFTEYE SCH; -Povidone-Iodine 450 DROP/30 ML Solution ONE; -Tetracaine HCl/Pf 0.5% Opth Soln 4 ml ONE
[2024-08-05] MEDS ORDERED: Lactated Ringer's 1,000 ML IV SCH (10:50)
[2024-08-05 11:16] VITALS: BP 143/74
--- NOTE | 2024-08-05 11:28 | NUR ---
History, Chart, Medications and Allergies reviewed before start of procedure. Patient confirms NPO status and agrees with scheduled surgery. Patient States Post-Procedure ride home has been arranged with daughter.
--- NOTE | 2024-08-05 13:26 | NUR ---
08/05/24 [address] ANDRADE, SEE ANESTHESIA RECORDS.
[2024-08-05 14:17] VITALS: BP 122/58
--- NOTE | 2024-08-05 14:38 | NUR ---
Discharge instructions reviewed with patient. Patient verbalizes understanding. Copy given to patient to take home. Patient States Post-Procedure ride home has been arranged. 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
[2024-08-05] MEDS ORDERED: Etomidate 2MG / ML 10ML Vial XX ONE (16:13)
[2024-08-05] MEDS ORDERED: Propofol 10mg/ml 20 ml Vial (Procedural) IV ONE (16:13)
== END 2024-08-05 14:40 | disposition home or self-care (01) ==
LOC: ORSCMMR 10:29
PROVIDERS: Surgery
PROC: 0DBE8ZX Excision of Large Intestine, Via Natural or Artificial Opening Endoscopic, Diagnostic (ICD-10-PCS; principal; 2024-08-05 12:00)
PROC: 0DBH8ZX Excision of Cecum, Via Natural or Artificial Opening Endoscopic, Diagnostic (ICD-10-PCS; principal; 2024-08-05 12:00)
DX: Z12.11 Encounter for screening for malignant neoplasm of colon (principal); K52.831 Collagenous colitis; Z86.0100 Personal history of colon polyps, unspecified; E03.9 Hypothyroidism, unspecified; I10 Essential (primary) hypertension; J44.9 Chronic obstructive pulmonary disease, unspecified; I25.10 Atherosclerotic heart disease of native coronary artery without angina pectoris; E78.5 Hyperlipidemia, unspecified; Z86.73 Personal history of transient ischemic attack (TIA), and cerebral infarction without residual deficits; Z79.82 Long term (current) use of aspirin; Z79.899 Other long term (current) drug therapy; F17.210 Nicotine dependence, cigarettes, uncomplicated
CPT/HCPCS: 88305; J2704; J7120